=== PATIENT | female | born 1960 | race Caucasian/White ===

== ENCOUNTER 2018-09-18 21:15 | Inpatient (IN) | payer SELFPAY ==
[2018-09-18] MEDS ORDERED: traMADol HCl 50 MG TAB ONE (22:11)
[2018-09-18 22:29] LABS: BF Color Yellow; Body Fluid Source SYNOVIAL FLUID; Clarity Hazy (Clear); RBC Count-Automated 56000 /cumm; Tube # EDTA; WBC/NonHematic-Auto 45800 /cumm
[2018-09-18 23:01] LABS: BF Segmented Neutrophils 83 %; Cell Count Non Hematic 14 %; Lymphocytes 3 %
[2018-09-18 23:06] LABS: Synovial Fluid, Glucose 83 mg/dL (Not Available); Synovial Fluid, Protein 2.6 g/dL (Not Available); Synovial Fluid, Uric Acid Less than 5.0 mg/dL (Not Available)
[2018-09-19] MEDS ORDERED: cefTRIAXone\\ROCEPHIN 2 GM VIAL ONE (00:27)
[2018-09-19] MEDS ORDERED: Acetaminophen 325 MG TAB PO PRN (04:23)
[2018-09-19] MEDS ORDERED: Senokot S 8.6-50 MG TAB PO PRN (04:23)
[2018-09-19] MEDS ORDERED: Bisacodyl 5 MG TAB PO PRN (04:23)
[2018-09-19] MEDS ORDERED: Ondansetron PF 4 MG/2 ML Vial IVP PRN (04:23)
[2018-09-19] MEDS ORDERED: Ondansetron ODT 4 MG TAB PO PRN (04:23)
[2018-09-19 04:57] LABS: #Eosinphils 0.3 thou/uL (0.0-0.7); #Lymphocytes 3.6 thou/uL (1.20-3.40); #Monocytes 0.8 thou/uL (0.11-0.59); #Neutrophils 4.6 thou/uL (1.40-6.50); %Basophils 0.4 % (0.0-1.0); %Eosinophils 3.2 % (0.0-10.0); %Lymphocytes 38.8 % (21.0-51.0); %Monocytes 8.2 % (0.0-10.0); %Neutrophils 49.4 % (42.0-75.0); Mean Corpuscular HGB CONC 32.9 g/dL (32.0-36.0); Mean Corpuscular Hemoglobin 31.1 pg (27.0-31.0); Mean Corpuscular Volume 94.3 fL (78.0-98.0); Platelet Count 283 thou/uL (130-400); RBC Distribution Width 12.1 % (11.5-14.5); White Blood Cell (WBC) Count 9.3 thou/uL (4.8-10.8)
[2018-09-19 05:08] LABS: Anion Gap 10 mmol/L (10-20); BUN (Urea Nitrogen) 22 mg/dL (9.8-20.1); Calc. Creatinine Clearance 0 mL/min (70-130); Carbon Dioxide 25 mmol/L (22-29); Chloride 110 mmol/L (98-107); Estimated GFR-MDRD 66; Glucose 101 mg/dL (70-105); Sodium 141 mmol/L (136-145)
[2018-09-19] MEDS ORDERED: Zolpidem Tartrate 5 MG TAB PO PRN (08:19)
[2018-09-19] MEDS ORDERED: Loperamide HCl 2 MG CAP PO PRN (08:19)
[2018-09-19] MEDS ORDERED: Famotidine/PF 20 mg/2ml Vial SLOW IVP SCH (09:00)
[2018-09-19 10:42] VITALS: BMI 27.4
[2018-09-19] MEDS: Sodium Chloride 0.9% 1,000 ML IV SCH ×2 (11:03→19:23)
[2018-09-19] MEDS: Enoxaparin Sodium 40 MG/0.4 ML SYRINGE SC SCH (12:05)
[2018-09-19] MEDS: Famotidine 20 MG TAB PO SCH ×2 (12:05→21:18)
[2018-09-19] MEDS: Vancomycin HCl 1.25 GM in Sodium Chloride 0.9% 250 ML 250 ML IVPB SCH (13:06)
--- NOTE | 2018-09-19 13:35 | HP ---
PRIMARY CARE PHYSICIAN: [facility] call admission. REASON FOR ADMISSION: Left knee septic arthritis/acute gout. HISTORY OF PRESENT ILLNESS: A 58-year-old female with a history of rheumatoid arthritis, not on any specific medication as well as history of gout, who presented to emergency room with a complaint of swelling and erythema of left knee. She was having difficulty ambulation. She was having severe pain with walking, and that is why she went to [facility], and subsequently, she was transferred to our emergency room. The patient had a knee arthrocentesis in the emergency room, which was suspected for septic arthritis, and that is why the patient is being admitted to the hospital. The patient subjectively reports that she was feeling feverish, but she did not measure temperature. She denies any other joint problems. She denies any urinary tract infection symptoms. She denies any recent upper respiratory infection. She denies any travel. REVIEW OF SYSTEMS: CONSTITUTIONAL: Negative for weight loss or gain, ability to conduct usual activities. SKIN: Negative for rash, itching. EYES: Negative for double vision, pain. ENT/MOUTH: Negative for nose bleeding, neck stiffness, pain, tenderness. CARDIOVASCULAR: Negative for palpitations, dyspnea on exertion, orthopnea. RESPIRATORY: Negative for shortness of breath, wheezing, cough, hemoptysis, fever or night sweats. GASTROINTESTINAL: Negative for poor appetite, abdominal pain, heartburn, nausea, vomiting, constipation, or diarrhea. GENITOURINARY: Negative for urgency, frequency, dysuria, nocturia. MUSCULOSKELETAL: Negative for pain, swelling. NEUROLOGIC/PSYCHIATRIC: Negative for anxiety, depression. ALLERGY/IMMUNOLOGIC: Negative for skin rash, bleeding tendency. Please see my HPI for pertinent positives and negatives. All other review of systems reviewed and negative except as mentioned in the HPI. PAST MEDICAL HISTORY: COPD, tobacco abuse disorder, rheumatoid arthritis, and history of gout. PAST SURGICAL HISTORY: Left fifth digit joint repair, x2, hysterectomy, tonsillectomy, adenoidectomy, and tubal ligation. PAST PSYCHIATRIC HISTORY: Reviewed and negative. SOCIAL HISTORY: The patient is smoking about 1 to 2 packs per day. She denies any alcohol or other illicit drug abuse. FAMILY HISTORY: The patient does not have any family history of coronary artery disease, stroke, or cancer. EMERGENCY ROOM COURSE: The patient has received IV fluids, vancomycin, Rocephin, and tramadol. CURRENT HOME MEDICATION: The patient is not on any specific scheduled prescription medication. ALLERGIES: CODEINE SULFATE. PHYSICAL EXAMINATION: VITAL SIGNS: On arrival, blood pressure 136/62, pulse 79, respiratory rate 16, temperature 98.4, and saturation is 100% on room air. Weight 74.8 kg. GENERAL: The patient is currently alert, awake. No obvious acute distress. HEENT: Head; normocephalic, atraumatic. Eyes; pupils round, reactive to light. Extraocular muscles intact. ENT, oropharynx within normal limits. Moist mucous membranes. No oral lesion. No pharyngeal erythema. No exudate. NECK: Supple. No thyromegaly. No carotid bruit. No jugular venous distention. LUNGS: Clear to auscultation without any rhonchi or rales. CARDIAC: S1 and S2, regular without any murmur. No gallop. No rub. ABDOMEN: Soft. Bowel sounds present. Nontender. Nondistended. No organomegaly. No mass. No suprapubic tenderness. BACK: Unremarkable. No CVA tenderness. EXTREMITIES: Upper extremities, passive movement of all joints is normal. Lower extremities, left knee is swollen and tender with erythema and warmth. Range of motion is limited due to pain. Right knee is within normal limit. Other joints are normal limit. NEUROLOGIC: Nonfocal examination. SKIN: No skin rash. HEMATOLOGICAL SYSTEM: No lymphadenopathy. LABORATORY DATA: Significant labs: Knee x-ray done at [facility] showed small joint effusion. CBC; WBC 9.3, hemoglobin 13.6, and platelets 300. ESR 45. BMP; sodium 143, potassium 4.2, chloride 110, carbon dioxide 23, BUN 23, creatinine 0.90, glucose 191, and calcium 9.7. CRP 5.69. Synovial fluid uric acid less than 5, synovial WBC count 45,800. ASSESSMENT AND PLAN: 1. Acute left knee monoarthritis, suspected for septic arthritis versus acute gout. At this point, the patient is kept on empiric broad-spectrum antibiotic therapy until we rule out septic arthritis. The patient will continue vancomycin as per pharmacy adjusted dose, Rocephin 2 g IV daily. We will follow up on culture result. Dr. Strauss will be consulted. Her pain will be controlled with pain medication. 2. History of gout. We will check uric acid level, and we will wait for synovial fluid crystal analysis result. Depending upon that result, we will decide hyperuricemia treatment and acute gout treatment. 3. Tobacco abuse disorder. Smoking cessation counseling given. Healthy lifestyle measure discussed with the patient. 4. History of chronic obstructive pulmonary disease. We will use DuoNeb therapy q.6 hourly p.r.n. basis. 5. Deep venous thrombosis prophylaxis. Lovenox 40 mg subcu daily. 6. GI prophylaxis. Pepcid 20 mg p.o. b.i.d. CODE STATUS: The patient is full code. She does not have any surrogate decision maker. DISPOSITION PLAN: Based on clinical course. Job ID: [id number]
--- NOTE | 2018-09-19 15:52 | CON ---
DATE OF CONSULTATION: 09/19/2018 REASON FOR CONSULTATION: Left knee inflammatory arthropathy. HISTORY OF PRESENT ILLNESS: A 58-year-old with history of rheumatoid arthritis, previously on methotrexate, but now off any treatment, who developed pain and swelling of the left knee over the past few days without any injury reported. She had an arthrocentesis, which is discussed below. Currently, still with limitation of range of motion. Denies headaches, visual symptoms, sore throat, odynophagia, or dysphagia. No neck pain. No shortness of breath or cough. No sputum production. No abdominal pain or diarrhea. No genitourinary symptoms. The patient has her rheumatoid arthritis mostly involving hands, sometimes she has problems in the shoulders, particularly left side, usually does not have a lot of pain in the knees. PAST MEDICAL HISTORY: Rheumatoid arthritis and COPD. PAST SURGICAL HISTORY: , hysterectomy, tonsillectomy, and tubal ligation. SOCIAL HISTORY: She lives in [place]. Smokes a pack per day. . FAMILY HISTORY: Noncontributory. ALLERGIES: CODEINE WITH MOSTLY GI SYMPTOMS. MEDICATIONS LIST: Currently is; 1. Tylenol. 2. DuoNeb. 3. Dulcolax. 4. Ceftriaxone. 5. Lovenox. 6. Toradol. 7. Imodium. 8. Ondansetron. 9. Zofran. 10. Vancomycin. PHYSICAL EXAMINATION: VITAL SIGNS: T-max 98 and BP 106/62. Other vital signs are normal. O2 saturations normal. SKIN: Shows the puncture site for the arthrocentesis, otherwise skin exam normal. LYMPHATICS: No lymphadenopathy. HEENT: Ocular movements conjugate. Oral cavity normal. Still quite a few teeth in place, in fairly decent shape. NECK: Supple. No jugular venous distention or carotid bruits. LUNGS: Symmetric. Clear breath sounds. HEART: S1 and S2. Regular rate. No S3 or S4. ABDOMEN: Soft, not distended or tender. No ascites. No bladder distention. EXTREMITIES: Left knee is in flexion and has limited range of motion. The other joints do not have any inflammatory changes noted. Dorsalis pedis pulses are 1+, plantar responses are flexor, no clonus. Strength in upper and lower extremities is 5/5. Cognitive function appears to be intact. LABORATORY DATA: White cell count 9.3, hemoglobin normal, platelets normal, and differential was normal. Sodium 141 and creatinine 0.88. CRP 5.6. Synovial fluid with 4500 wbc's and 82% segmented neutrophils. The path showed no evidence of crystals identified. ASSESSMENT: 1. Rheumatoid arthritis, on no disease modifying treatment at this time. 2. Monoarthritis, left knee. DISCUSSION: Differential diagnosis includes infectious arthritis versus crystal-induced versus rheumatoid associated monoarthritis. Monoarthritis associated with rheumatoid arthritis is infrequent, but has been described. The crystal analysis was negative, so effectively rules out crystal-induced arthritis. If the cultures remain negative, then I would believe that this is a result of rheumatoid arthritis-induced inflammatory change and treat it accordingly. Job ID: [id number]
[2018-09-19] MEDS: Ketorolac Tromethamine 30 MG/ML VIAL IVP PRN (18:26)
[2018-09-19] MEDS: cefTRIAXone\\ROCEPHIN 2 GM in Sodium Chloride 0.9% 100 ML IVPB SCH (23:09)
[2018-09-20] MEDS: Sodium Chloride 0.9% 1,000 ML IV SCH ×2 (00:13→05:35)
[2018-09-20] MEDS: Vancomycin HCl 1.25 GM in Sodium Chloride 0.9% 250 ML 250 ML IVPB SCH ×2 (00:13→11:54)
[2018-09-20 06:51] LABS: Bilirubin Negative (Negative); Blood, Urine Negative (Negative); Clarity CLEAR (Clear); Glucose, Urine (Dipstick) Negative (Negative); Leukocyte Negative (Negative); Nitrite Negative (Negative); Protein, Urine (Dipstick) Negative (Neg-Trace); Specific Gravity, Urine 1.034 (1.002-1.036); Urobilinogen 0.2 mg/dL (0.2-1.0)
[2018-09-20 06:54] LABS: Bacteria/HPF None Seen HPF (None Seen); Hyaline Casts/LPF 0-3 HYALINE CAST LPF (0-3 Hyaline); Pathc Cast-AUWi Flag 0.43 (0-2.49); Squamous Epithelial 0-3 HPF (0-3); WBC/HPF 0-3 HPF (0-3)
[2018-09-20 07:27] LABS: #Basophils 0.1 thou/uL (0.0-0.2); #Eosinphils 0.3 thou/uL (0.0-0.7); #Lymphocytes 3.2 thou/uL (1.20-3.40); #Monocytes 0.6 thou/uL (0.11-0.59); #Neutrophils 3.4 thou/uL (1.40-6.50); %Basophils 0.8 % (0.0-1.0); %Eosinophils 3.6 % (0.0-10.0); %Lymphocytes 42.6 % (21.0-51.0); %Monocytes 7.6 % (0.0-10.0); %Neutrophils 45.3 % (42.0-75.0); Hemoglobin 12.2 g/dL (12.0-16.0); Mean Corpuscular HGB CONC 32.2 g/dL (32.0-36.0); Mean Corpuscular Volume 96.2 fL (78.0-98.0); Mean Platelet Volume 8.7 fL (7.4-10.4); Platelet Count 267 thou/uL (130-400); RBC Distribution Width 12.1 % (11.5-14.5); Red Blood Cell (RBC) Count 3.95 mill/uL (4.20-5.40); White Blood Cell (WBC) Count 7.5 thou/uL (4.8-10.8)
[2018-09-20 07:36] LABS: ALT (SGPT) 15 U/L (8-55); AST (SGOT) 24 U/L (5-34); Alkaline Phosphatase 91 U/L (40-150); Anion Gap 8 mmol/L (10-20); BUN (Urea Nitrogen) 24 mg/dL (9.8-20.1); Bilirubin, Total Less than 0.2 mg/dL (0.2-1.2); Calc. Creatinine Clearance 89 mL/min (70-130); Calcium 8.8 mg/dL (7.8-10.44); Carbon Dioxide 23 mmol/L (22-29); Chloride 113 mmol/L (98-107); Estimated GFR-MDRD 71; Globulin 3.1 g/dL (2.4-3.5); Glucose 110 mg/dL (70-105); Potassium 4.2 mmol/L (3.5-5.1); Protein, Total 6.1 g/dL (6.0-8.3); Sodium 140 mmol/L (136-145); Uric Acid 3.6 mg/dL (2.6-6.0)
[2018-09-20] MEDS: Famotidine 20 MG TAB PO SCH ×2 (08:53→21:59)
[2018-09-20] MEDS: Enoxaparin Sodium 40 MG/0.4 ML SYRINGE SC SCH (08:54)
--- NOTE | 2018-09-20 11:42 | PDOC.PN ---
- Subjective Encounter Start Date: 09/20/18 Encounter Start Time: 08:00 Patient seen and examined. No new complaints. No overnight events - Objective Resuscitation Status - Order Detail: 09/19/18 08:19 Resuscitation Status Routine Resuscitation Status: FULL: Full Resuscitation MAR Reviewed: Yes Vital Signs & Weight: Vital Signs (12 hours) Temp Pulse Resp BP Pulse Ox 09/20/18 08:00 99 09/20/18 07:40 97.6 F 72 16 115/54 L 99 09/20/18 04:00 98.1 F 72 16 139/74 99 09/20/18 00:00 98.2 F 75 16 113/73 97 Weight Weight 165 lb Result Diagrams: 09/20/18 06:22 09/20/18 06:22 Phys Exam - Physical Examination Constitutional: NAD HEENT: PERRLA, moist MMs, sclera anicteric Neck: no JVD, supple Respiratory: no wheezing, no rales, no rhonchi Cardiovascular: RRR, no significant murmur, no rub Gastrointestinal: soft, non-tender, no distention, positive bowel sounds Musculoskeletal: no edema, pulses present left knee swelling Neurological: non-focal, normal sensation, moves all 4 limbs Lymphatic: no nodes Psychiatric: normal affect, A&O x 3 Skin: no rash, normal turgor Dx/Plan (1) Acute monoarthritis Code(s): M13.10 - MONOARTHRITIS, NOT ELSEWHERE CLASSIFIED, UNSPECIFIED SITE Status: Acute (2) Rheumatoid arthritis Code(s): M06.9 - RHEUMATOID ARTHRITIS, UNSPECIFIED Status: Chronic (3) Tobacco abuse Code(s): Z72.0 - TOBACCO USE Status: Chronic - Plan cont current plan of care, plan discussed w/ family, continue antibiotics * continue empiric antibiotics * medication reviewed as below * symptomatic treatment * follow culture. Review of Systems - Review of Systems Constitutional: negative: fever, chills, sweats, weakness, malaise, other Eyes: negative: Pain, Vision Change, Conjunctivae Inflammation, Eyelid Inflammation, Redness, Other ENT: negative: Ear Pain, Ear Discharge, Nose Pain, Nose Discharge, Nose Congestion, Mouth Pain, Mouth Swelling, Throat Pain, Throat Swelling, Other Respiratory: negative: Cough, Dry, Shortness of Breath, Hemoptysis, SOB with Excertion, Pleuritic Pain, Sputum, Wheezing Cardiovascular: negative: chest pain, palpitations, orthopnea, paroxysmal nocturnal dyspnea, edema, light headedness, other Gastrointestinal: negative: Nausea, Vomiting, Abdominal Pain, Diarrhea, Constipation, Melena, Hematochezia, Other Genitourinary: negative: Dysuria, Frequency, Incontinence, Hematuria, Retention , Other Musculoskeletal: Leg Pain. negative: Neck Pain, Shoulder Pain, Arm Pain, Back Pain, Hand Pain, Foot Pain, Other Skin: negative: Rash, Lesions, Marco, Bruising, Other Neurological: negative: Weakness, Numbness, Incoordination, Change in Speech, Confusion, Seizures, Other - Medications/Allergies Allergies/Adverse Reactions: Allergies Allergy/AdvReac Type Severity Reaction Status Date / Time codeine Allergy Verified 09/19/18 04:35 Medications: Current Medications Acetaminophen (Tylenol) 650 mg PO Q4H PRN PRN Reason: Headache/Fever/Mild Pain (1-3) Last Admin: 09/20/18 05:33 Dose: 650 mg Albuterol/Ipratropium (Duoneb) 3 ml NEB [id number] PRN PRN Reason: SOB &/or Wheezing Bisacodyl (Dulcolax) 10 mg PO DAILYPRN PRN PRN Reason: Constipation Enoxaparin Sodium (Lovenox) 40 mg SC 0900 [facility] Last Admin: 09/20/18 08:54 Dose: 40 mg Famotidine (Pepcid) 20 mg PO BID [facility] Last Admin: 09/20/18 08:53 Dose: 20 mg Vancomycin HCl 1.25 gm/ Sodium (Chloride) 250 mls @ 250 mls/hr IVPB 1200,2359 [facility] Last Admin: 09/20/18 00:13 Dose: 250 mls Ceftriaxone Sodium 2 gm/ (Sodium Chloride) 100 mls @ 200 mls/hr IVPB Q24HR@ 2300 [facility] Last Admin: 09/19/18 23:09 Dose: 100 mls Ketorolac Tromethamine (Toradol) 15 mg IVP Q6H PRN PRN Reason: Pain Stop: 09/24/18 12:25 Last Admin: 09/19/18 18:26 Dose: 15 mg Loperamide HCl (Imodium) 2 mg PO PRN PRN PRN Reason: Diarrhea/Loose Stools Miscellaneous Medication (Pharmacy To Dose) 0 each IVPB PRN PRN PRN Reason: VANC/ROCPEHIN Pharmacy to Dose Ondansetron HCl (Zofran Odt) 4 mg PO Q6H PRN PRN Reason: Nausea/Vomiting Ondansetron HCl (Zofran) 4 mg IVP Q6H PRN PRN Reason: Nausea/Vomiting Senna/Docusate Sodium (Senokot S) 2 tab PO BIDPRN PRN PRN Reason: Constipation Sodium Chloride (Flush - Normal Saline) 10 ml IVF Q12HR [facility] Last Admin: 09/20/18 08:55 Dose: Not Given Sodium Chloride (Flush - Normal Saline) 10 ml IVF PRN PRN PRN Reason: Saline Flush Zolpidem Tartrate (Ambien) 5 mg PO HSPRN PRN PRN Reason: Insomnia
[2018-09-20 13:32] LABS: HIV (1/2) Antibody/Antigen Non-Reactive (NonReactive); HIV 1/2 INDEX 0.31 S/CO (<1.00); Hep C IgG Ab Non-Reactive (NonReactive); Hep C Index 0.09 S/CO (0-0.79)
[2018-09-20 13:41] LABS: Syphilis Antibody Nonreactive (Nonreactive); Syphilis Antibody Index 0.05 S/CO (<1.00 Non-Reactive)
[2018-09-20] MEDS: Ketorolac Tromethamine 30 MG/ML VIAL IVP PRN (17:53)
[2018-09-20] MEDS: cefTRIAXone\\ROCEPHIN 2 GM in Sodium Chloride 0.9% 100 ML IVPB SCH (22:01)
[2018-09-20 23:45] LABS: Vancomycin, Trough 19.9 ug/mL
[2018-09-21] MEDS: Vancomycin HCl 1 GM in Premix Bag 1 BAG IVPB SCH ×2 (01:00→12:38)
[2018-09-21] MEDS: Enoxaparin Sodium 40 MG/0.4 ML SYRINGE SC SCH (08:32)
[2018-09-21] MEDS: Famotidine 20 MG TAB PO SCH (08:32)
--- NOTE | 2018-09-21 09:46 | PDOC.PN ---
- Subjective Encounter Start Date: 09/21/18 Encounter Start Time: 08:00 Patient seen and examined. No new complaints. No overnight events - Objective Resuscitation Status - Order Detail: 09/19/18 08:19 Resuscitation Status Routine Resuscitation Status: FULL: Full Resuscitation MAR Reviewed: Yes Vital Signs & Weight: Vital Signs (12 hours) Temp Pulse Resp BP Pulse Ox 09/21/18 08:00 97 09/21/18 07:34 98 F 61 20 117/76 97 09/21/18 04:00 98.2 F 65 18 129/77 98 09/21/18 00:00 98.4 F 68 18 129/83 98 Weight Weight 165 lb I&O: 09/20/18 09/21/18 09/22/18 06:59 06:59 06:59 Intake Total 1810 480 Balance 1810 480 Result Diagrams: 09/20/18 06:22 09/20/18 06:22 Phys Exam - Physical Examination Constitutional: NAD HEENT: PERRLA, moist MMs, sclera anicteric Neck: no JVD, supple Respiratory: no wheezing, no rales, no rhonchi Cardiovascular: RRR, no significant murmur, no rub Gastrointestinal: soft, non-tender, no distention, positive bowel sounds Musculoskeletal: no edema, pulses present left knee swelling Neurological: non-focal, normal sensation, moves all 4 limbs Psychiatric: normal affect, A&O x 3 Skin: no rash, normal turgor Dx/Plan (1) Acute monoarthritis Code(s): M13.10 - MONOARTHRITIS, NOT ELSEWHERE CLASSIFIED, UNSPECIFIED SITE Status: Acute (2) Rheumatoid arthritis Code(s): M06.9 - RHEUMATOID ARTHRITIS, UNSPECIFIED Status: Chronic (3) Tobacco abuse Code(s): Z72.0 - TOBACCO USE Status: Chronic - Plan cont current plan of care * so far culture negative * will ask ID team to decide on antibiotics * pain control * start PT * medication reviewed as below * symptomatic treatment. * given her level of pain, unsure at this point steroid injection in joint will be helpful, but remote infection is concern Review of Systems - Review of Systems Constitutional: negative: fever, chills, sweats, weakness, malaise, other Eyes: negative: Pain, Vision Change, Conjunctivae Inflammation, Eyelid Inflammation, Redness, Other ENT: negative: Ear Pain, Ear Discharge, Nose Pain, Nose Discharge, Nose Congestion, Mouth Pain, Mouth Swelling, Throat Pain, Throat Swelling, Other Respiratory: negative: Cough, Dry, Shortness of Breath, Hemoptysis, SOB with Excertion, Pleuritic Pain, Sputum, Wheezing Cardiovascular: negative: chest pain, palpitations, orthopnea, paroxysmal nocturnal dyspnea, edema, light headedness, other Gastrointestinal: negative: Nausea, Vomiting, Abdominal Pain, Diarrhea, Constipation, Melena, Hematochezia, Other Genitourinary: negative: Dysuria, Frequency, Incontinence, Hematuria, Retention , Other Musculoskeletal: Leg Pain. negative: Neck Pain, Shoulder Pain, Arm Pain, Back Pain, Hand Pain, Foot Pain, Other - Medications/Allergies Allergies/Adverse Reactions: Allergies Allergy/AdvReac Type Severity Reaction Status Date / Time codeine Allergy Verified 09/19/18 04:35 Medications: Current Medications Acetaminophen (Tylenol) 650 mg PO Q4H PRN PRN Reason: Headache/Fever/Mild Pain (1-3) Last Admin: 09/20/18 05:33 Dose: 650 mg Albuterol/Ipratropium (Duoneb) 3 ml NEB [id number] PRN PRN Reason: SOB &/or Wheezing Bisacodyl (Dulcolax) 10 mg PO DAILYPRN PRN PRN Reason: Constipation Enoxaparin Sodium (Lovenox) 40 mg SC 0900 [facility] Last Admin: 09/21/18 08:32 Dose: 40 mg Famotidine (Pepcid) 20 mg PO BID [facility] Last Admin: 09/21/18 08:32 Dose: 20 mg Ceftriaxone Sodium 2 gm/ (Sodium Chloride) 100 mls @ 200 mls/hr IVPB Q24HR@ 2300 [facility] Last Admin: 09/20/18 22:01 Dose: 100 mls Vancomycin HCl 1 gm/ Device 200 mls @ 200 mls/hr IVPB 1200,2359 [facility] Last Admin: 09/21/18 01:00 Dose: 200 mls Ketorolac Tromethamine (Toradol) 15 mg IVP Q6H PRN PRN Reason: Pain Stop: 09/24/18 12:25 Last Admin: 09/20/18 17:53 Dose: 15 mg Loperamide HCl (Imodium) 2 mg PO PRN PRN PRN Reason: Diarrhea/Loose Stools Miscellaneous Medication (Pharmacy To Dose) 0 each IVPB PRN PRN PRN Reason: VANC/ROCPEHIN Pharmacy to Dose Ondansetron HCl (Zofran Odt) 4 mg PO Q6H PRN PRN Reason: Nausea/Vomiting Ondansetron HCl (Zofran) 4 mg IVP Q6H PRN PRN Reason: Nausea/Vomiting Senna/Docusate Sodium (Senokot S) 2 tab PO BIDPRN PRN PRN Reason: Constipation Sodium Chloride (Flush - Normal Saline) 10 ml IVF Q12HR [facility] Last Admin: 09/21/18 08:32 Dose: 10 ml Sodium Chloride (Flush - Normal Saline) 10 ml IVF PRN PRN PRN Reason: Saline Flush Last Admin: 09/20/18 17:53 Dose: 10 ml Zolpidem Tartrate (Ambien) 5 mg PO HSPRN PRN PRN Reason: Insomnia
[2018-09-21 12:01] VITALS: BP 109/80
[2018-09-21] MEDS ORDERED: Colchicine 0.6 MG TAB PO SCH (16:00)
[2018-09-21 16:13] VITALS: TEMP 98.1
--- NOTE | 2018-09-22 08:27 | DIS ---
DATE OF ADMISSION: 09/19/2018 DATE OF DISCHARGE: 09/21/2018 DISCHARGE DISPOSITION: Home. PRIMARY DISCHARGE DIAGNOSIS: Acute monoarthritis, ruled out septic arthritis. SECONDARY DISCHARGE DIAGNOSES: 1. History of suspected rheumatoid arthritis. 2. Tobacco abuse disorder. PRIMARY PROCEDURE/OPERATION: Joint arthrocentesis. RADIOLOGICAL INVESTIGATION: Knee x-ray showed small effusion. Chest x-ray normal. SIGNIFICANT LABORATORY DATA: Hemoglobin 12.2. Creatinine 0.83. CRP 5.69. ESR 33. Urinalysis, normal. Synovial fluid wbc 45,800. Synovial fluid crystal negative. Hepatitis, HIV, and syphilis negative. Synovial fluid culture negative. DISCHARGE MEDICATIONS: 1. Colchicine 0.6 mg p.o. b.i.d. for 7 days. 2. Multivitamin one tablet p.o. daily. CONTRAINDICATION: None. CODE STATUS: Full code. INPATIENT WIDE AREA NETWORK ENGINEER: Thaddeus Strauss MD, Infection doctor. TEST RESULTS PENDING ON DISCHARGE: None. ALLERGIES: CODEINE. 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 Strauss in 2 weeks. HOSPITAL COURSE: This is a 58-year-old female, who was admitted for left knee swelling and pain, which was getting worse with walking. The patient initially evaluated at [facility], where she had joint arthrocentesis done, and subsequently, she was sent to our emergency room for possible septic arthritis. Initially, we started giving the Rocephin and vancomycin. We consulted Dr. Strauss. Dr. Strauss was not impressed with infectious arthritis. We waited for couple of days to see culture result, and once culture was negative, then we discontinued antibiotic therapy, and on discharge, we prescribed colchicine 0.6 mg p.o. b.i.d. The patient will continue this medication for 7 days, and she will follow up with Dr. Strauss. The patient is also instructed to follow with Rheumatology and Orthopedic Physician as an outpatient basis. The patient is stable for discharge. The patient is seen and examined at the bedside today. Please see my progress note from today for further detail. Job ID: [id number]
[2018-09-23 14:04] LABS: Chlamydia by PCR Not Detected (NotDetected); GC by PCR Not Detected (NotDetected)
== END 2018-09-21 17:20 | disposition home or self-care (01) | DRG 554 ==
LOC: ERS 21:15 → ERHOLD 09-19 → SJJU 09-19 09:49
PROVIDERS: ADMIT Internal Medicine; ATTEND Internal Medicine
DX: M13.162 Monoarthritis, not elsewhere classified, left knee (principal); M06.9 Rheumatoid arthritis, unspecified; F17.210 Nicotine dependence, cigarettes, uncomplicated; J44.9 Chronic obstructive pulmonary disease, unspecified; M10.9 Gout, unspecified; Z88.5 Allergy status to narcotic agent
CPT/HCPCS: 36415; 80048; 80053; 80202; 81001; 82945; 83615; 84157; 84550; 84560; 85025; 85060; 85652; 86140; 86780; 86803; 87389; 87491; 87591; 89051; 89060; J0696; J1650; J1885; J3370; J7050